=== PATIENT | female | born 1945 | race Caucasian/White ===

== ENCOUNTER 2020-03-09 11:17 | Outpatient (CLI) | payer MEDICARE, BC, SELFPAY ==
--- NOTE | 2020-03-09 11:24 | MM_ITS ---
WS: [id number] BILATERAL DIGITAL SCREENING MAMMOGRAPHY WITH CAD CLINICAL INFORMATION: SCREENING HISTORY: Screening mammogram. No current complaints. COMPARISON: TECHNIQUE: Bilateral CC and MLO views. FINDINGS: Scattered fibroglandular densities bilaterally. No suspicious focal mass, asymmetry, calcifications, or architectural distortion. No evidence of malignancy. Stable punctate and clustered calcifications. Stable clustered calcifications left breast. Stable secretory calcifications bilaterally. Postoperat flora changes right breast with volume loss. MM/[id number] IMPRESSION: BI-RADS: 2-Benign FOLLOW UP: 1 Year Follow-up Recommend return to annual screening mammography.
== END 2020-03-09 11:18 | disposition home or self-care (01) ==
LOC: RADSHAW 11:22
PROVIDERS: PCP Internal Medicine; Visit Provider Internal Medicine
DX: Z12.31 Encounter for screening mammogram for malignant neoplasm of breast (principal)
CPT/HCPCS: 77067

== ENCOUNTER → 2020-03-13 16:01 | Outpatient (BNVA) | payer MEDICARE, BC, SELFPAY | PROVIDERS: PCP Internal Medicine; Visit Provider Internal Medicine | DX: K90.9 Intestinal malabsorption, unspecified (principal); E88.81 Metabolic syndrome and other insulin resistance; R73.9 Hyperglycemia, unspecified; I10 Essential (primary) hypertension; E78.5 Hyperlipidemia, unspecified; Z95.2 Presence of prosthetic heart valve; Z79.899 Other long term (current) drug therapy | CPT/HCPCS: 80053; 83036; 83550; 84443; 85025 ==

== ENCOUNTER 2020-03-27 10:59 | Outpatient (CLI) | payer MEDICARE, BC, SELFPAY ==
--- NOTE | 2020-03-27 11:02 | XR_ITS ---
WS: [id number] Left hip, AP and frog leg standing, 03/27/2020 Clinical Data: E11.9 - Type 2 diabetes mellitus without complications Comparison: None. Findings: No fractures or dislocations are seen. The hip joint is intact. The soft tissues are not remarkable. The adjacent pelvis is normal. XR/XR hip LT 2-3V wo/w pel* [id number] Impression: Negative left hip.
== END 2020-03-27 11:00 | disposition home or self-care (01) ==
LOC: RAD 11:01
PROVIDERS: PCP Internal Medicine; Visit Provider Internal Medicine
DX: E11.9 Type 2 diabetes mellitus without complications (principal)
CPT/HCPCS: 73502

== ENCOUNTER → 2020-07-10 14:33 | Outpatient (BNVA) | payer MEDICARE, SELFPAY | PROVIDERS: PCP Internal Medicine; Visit Provider Family Medicine | DX: E11.65 Type 2 diabetes mellitus with hyperglycemia (principal); I10 Essential (primary) hypertension | CPT/HCPCS: 80048; 83036 ==

== ENCOUNTER → 2020-11-07 11:21 | Outpatient (BNVA) | payer MEDICARE, SELFPAY | PROVIDERS: PCP Family Medicine Adult Medicine; Visit Provider Family Medicine | DX: I10 Essential (primary) hypertension; E11.65 Type 2 diabetes mellitus with hyperglycemia | CPT/HCPCS: 80048; 83036 ==

== ENCOUNTER 2021-05-02 08:51 | Outpatient (CLI) | payer MEDICARE, SELFPAY ==
--- NOTE | 2021-05-02 08:57 | MM_ITS ---
WS: [id number] Bilateral screening digital mammogram, 05/02/2021 Clinical Data: SCREENING Comparison: 03/09/2020, 02/28/2019, 01/16/2017, 01/04/2016, 12/22/2014, 11/23/2013, 09/28/2012, 08/15/2011, 07/17/2009, 07/03/2008, 06/30/2007, 06/12/2006. Findings: The breast parenchymal pattern shows fat replacement. No spiculated masses or clustered calcification s are seen. There are no secondary signs of carcinoma. There is postoperative scarring at the upper o uter quadrant of the right breast. There are small axillary lymph nodes. There are mole markers on eric th breasts. There are small benign calcifications bilaterally. MM/[id number] Impression: 1. Negative bilateral mammogram unchanged. 2. Recommend annual screening mammograms. BIRADS: 2-Benign FOLLOW UP: 1 Year Follow-up The CAD lap checker was used.
== END 2021-05-02 08:52 | disposition home or self-care (01) ==
LOC: RADSHAW 08:55
PROVIDERS: PCP Family Medicine; Visit Provider Family Medicine
DX: Z12.31 Encounter for screening mammogram for malignant neoplasm of breast (principal)
CPT/HCPCS: 77067

== ENCOUNTER → 2021-08-14 14:43 | Outpatient (BNVA) | payer MEDICARE, BC, SELFPAY | PROVIDERS: PCP Family Medicine; Visit Provider Internal Medicine | DX: R06.02 Shortness of breath (principal); I10 Essential (primary) hypertension; E11.65 Type 2 diabetes mellitus with hyperglycemia; Z87.891 Personal history of nicotine dependence | CPT/HCPCS: 99214 ==

== ENCOUNTER 2021-10-03 11:29 | Outpatient (CLI) | payer MEDICARE, BC, SELFPAY ==
--- NOTE | 2021-10-03 12:00 | USCV_ITS ---
Sherrie Evans Age: 76 Gender: F : 1945 Exam Date: 10/03/2021 11:42 Ordering Phys: Joseph Mosley M.D ([email or web address]) Technologist: GEORGE Exam Location: [facility] [place] Indication: Shortness of breath, Murmur BP: 180 / 90 HR: 70 Rhythm: Sinus Technical Quality: Suboptimal MEASUREMENTS (Male / Female) Normal Values 2D ECHO LV Diastolic Diameter PLAX 3.8 cm 4.2 - 5.9 / 3.9 - 5.3 cm LV Systolic Diameter PLAX 2.5 cm IVS Diastolic Thickness 1.0 cm 0.6 - 1.0 / 0.6 - 0.9 cm IVS Systolic Thickness 1.5 cm LVPW Diastolic Thickness 1.0 cm 0.6 - 1.0 / 0.6 - 0.9 cm LVPW Systolic Thickness 1.2 cm LVOT Diameter 2.0 cm LV Ejection Fraction 2D Teich 63.2 % LA Diameter 2.9 cm Aorta at Sinotubular Diameter 2.0 cm IVC Diameter 1.5 cm M-MODE Aortic Annulus Diameter 2.0 cm LA Ao Ratio MM 1.4 MV E Point Septal Separation 0.6 cm DOPPLER AV Peak Velocity 156.0 cm/s LVOT Peak Velocity 76.0 cm/s AV Area Cont Eq vti 1.6 cm squared AV Area Cont Eq pk 1.6 cm squared MV Area PHT 2.8 cm squared Mitral E to A Ratio 0.9 MV E' Velocity 61.5 cm/s Mitral E to MV E' Ratio 14.9 Mitral E to LV E' Lateral Ratio 15.1 Mitral E to LV E' Septal Ratio 14.9 TR Peak Velocity 282.7 cm/s TR Peak Gradient 32.0 mmHg TV Peak E Velocity 39.0 cm/s Right Atrial Pressure 3.0 mmHg Pulmonary Artery Systolic Pressu 35.0 mmHg PV Peak Velocity 90.0 cm/s RV Acceleration Time 0.2 s RV Ejection Time 0.4 s RV AcT/ET 0.4 FINDINGS Left Ventricle Technically limited quality echocardiogram because of poor ultrasonic windows. LV systolic function is normal with EF of 55-60%. No regional wall motion abnormalities are seen. Grade 1 diastolic dysfunction Right Ventricle The right ventricle is normal in size and function. Right Atrium The right atrium is normal in size. Left Atrium The left atrium is normal in size. Mitral Valve Mild mitral annular calcification without significant stenosis or prolapse. There is mild mitral regurgitation. Aortic Valve Aortic valve is not well visualized but likely a bioprosthetic valve is seen. No significant aortic stenosis. Normal DVI of 0.50. There is no aortic regurgitation. Tricuspid Valve Grossly normal without significant stenosis. Mild tricuspid regurgitation. Insufficient TR jet to calculate RVSP Pulmonic Valve Not well visualized. There is trace pulmonic regurgitation. Pericardium Normal pericardium without effusion. Aorta Normal ascending aorta dimension. IVC CONCLUSIONS Technically limited quality echocardiogram because of poor ultrasonic windows. LV systolic function is normal with EF of 55-60%. Grade 1 diastolic dysfunction Mild mitral regurgitation Aortic valve is not well visualized but likely a bioprosthetic valve is seen. No significant aortic stenosis. Normal DVI of 0.50. Mild tricuspid regurgitation. Mild pulmonic regurgitation Compared to prior echocardiogram from 12/24/2018, patient now has a normally functioning bioprosthetic aortic valve Joseph Mosley MD (Electronically Signed) Final Date: 12 Oct 2021 23:50 S
== END 2021-10-03 11:30 | disposition home or self-care (01) ==
PROVIDERS: PCP Family Medicine; Visit Provider Internal Medicine
DX: I08.1 Rheumatic disorders of both mitral and tricuspid valves (principal); R01.1 Cardiac murmur, unspecified; R06.02 Shortness of breath
CPT/HCPCS: 93306

== ENCOUNTER → 2021-10-16 11:18 | Outpatient (BNVA) | payer MEDICARE, BC, SELFPAY | PROVIDERS: PCP Family Medicine; Visit Provider Family Medicine | DX: I10 Essential (primary) hypertension (principal); Z00.00 Encounter for general adult medical examination without abnormal findings; E11.65 Type 2 diabetes mellitus with hyperglycemia; K21.9 Gastro-esophageal reflux disease without esophagitis; M25.552 Pain in left hip; G89.29 Other chronic pain; G62.9 Polyneuropathy, unspecified; G47.00 Insomnia, unspecified | CPT/HCPCS: 80053; 83036; 85025 ==

== ENCOUNTER → 2022-03-31 11:09 | Outpatient (BNVA) | payer MEDICARE, BC, SELFPAY | PROVIDERS: PCP Family Medicine; Visit Provider Family Medicine | DX: I10 Essential (primary) hypertension (principal); E11.65 Type 2 diabetes mellitus with hyperglycemia; H69.82 Other specified disorders of Eustachian tube, left ear | CPT/HCPCS: 80053; 83036 ==

== ENCOUNTER → 2022-09-30 15:38 | Outpatient (BNVA) | payer MEDICARE, BC, SELFPAY | PROVIDERS: PCP Family Medicine; Visit Provider Internal Medicine | DX: I12.9 Hypertensive chronic kidney disease with stage 1 through stage 4 chronic kidney disease, or unspecified chronic kidney disease (principal); E11.22 Type 2 diabetes mellitus with diabetic chronic kidney disease; E11.65 Type 2 diabetes mellitus with hyperglycemia; N18.30 Chronic kidney disease, stage 3 unspecified; Z87.891 Personal history of nicotine dependence; Z79.84 Long term (current) use of oral hypoglycemic drugs; Z95.2 Presence of prosthetic heart valve | CPT/HCPCS: 99214 ==

== ENCOUNTER 2022-10-17 14:33 | Outpatient (CLI) | payer MEDICARE, BC, SELFPAY ==
--- NOTE | 2022-10-17 14:45 | USCV_ITS ---
Sherrie Evans Age: 77 Gender: F : 1945 Exam Date: 10/17/2022 15:14 Ordering Phys: Joseph Mosley M.D ([email or web address]) Technologist: Exam Location: [facility] – [place] Indication: tavor ao pros BP: 130 / 80 HR: 71 Rhythm: Sinus Technical Quality: Adequate MEASUREMENTS (Male / Female) Normal Values 2D ECHO LV Diastolic Diameter PLAX 4.1 cm 4.2 - 5.9 / 3.9 - 5.3 cm LV Systolic Diameter PLAX 2.5 cm IVS Diastolic Thickness 1.2 cm 0.6 - 1.0 / 0.6 - 0.9 cm IVS Systolic Thickness 1.1 cm LVPW Diastolic Thickness 1.1 cm 0.6 - 1.0 / 0.6 - 0.9 cm LVPW Systolic Thickness 1.6 cm LVOT Diameter 2.1 cm LV Ejection Fraction 2D Teich 69.0 % LV Ejection Fraction MOD 2C 63.3 % LV Ejection Fraction 2C AL 62.3 % LA Diameter 3.9 cm LA Width 4.4 cm DOPPLER AV Peak Velocity 269.7 cm/s LVOT Peak Velocity 125.0 cm/s AV Area Cont Eq vti 1.9 cm squared AV Area Cont Eq pk 1.6 cm squared MV Area PHT 2.1 cm squared Mitral E to A Ratio 0.8 MV E' Velocity 68.0 cm/s Mitral E to MV E' Ratio 18.2 Mitral E to LV E' Lateral Ratio 16.6 Mitral E to LV E' Septal Ratio 20.3 TR Peak Velocity 209.0 cm/s TR Peak Gradient 17.5 mmHg Right Atrial Pressure 3.0 mmHg Pulmonary Artery Systolic Pressu 20.5 mmHg RV Acceleration Time 0.1 s FINDINGS Left Ventricle Left ventricle is normal in size. Left ventricular hypertrophy is seen. LV systolic function is normal with EF of 65 to 70%. No regional wall motion abnormalities are seen. Grade 1 diastolic dysfunction Right Ventricle Normal in size and function Right Atrium Normal in size Left Atrium Normal in size Mitral Valve Mitral valve is thickened and calcified. Mild mitral regurgitation Aortic Valve Possibly bioprosthetic aortic valve. DVI 0.6 and is normal. Tricuspid Valve Mild tricuspid regurgitation. Insufficient TR jet to evaluate RVSP Pulmonic Valve Not well-visualized Pericardium Normal Aorta Normal in size IVC Appears to be normal CONCLUSIONS Left ventricular hypertrophy LV systolic function is normal with EF of 65 to 70% Grade 1 diastolic dysfunction Mild mitral regurgitation Possibly bioprosthetic aortic valve.normally functioning prosthetic aortic valve with a DVI of 0.6. Mild tricuspid regurgitation Compared to prior echocardiogram from 2021, no significant changes are seen Joseph Mosley MD (Electronically Signed) Final Date: 25 October 2022 13:57 S
== END 2022-10-17 14:34 | disposition home or self-care (01) ==
LOC: RAD 14:33
PROVIDERS: PCP Family Medicine; Visit Provider Internal Medicine
DX: I08.1 Rheumatic disorders of both mitral and tricuspid valves (principal); R06.02 Shortness of breath
CPT/HCPCS: 93306

== ENCOUNTER → 2023-02-12 14:13 | Outpatient (BNVA) | payer MEDICARE, BC, SELFPAY | PROVIDERS: PCP Family Medicine; Referring Provider Family Medicine; Visit Provider Family Medicine | DX: E11.65 Type 2 diabetes mellitus with hyperglycemia (principal) | CPT/HCPCS: 80053; 83036; 85025 ==

== ENCOUNTER → 2023-09-29 12:51 | Outpatient (BNVA) | payer MEDICARE, SELFPAY | PROVIDERS: PCP Family Medicine; Visit Provider Internal Medicine | DX: I12.9 Hypertensive chronic kidney disease with stage 1 through stage 4 chronic kidney disease, or unspecified chronic kidney disease (principal); Z95.2 Presence of prosthetic heart valve; E11.65 Type 2 diabetes mellitus with hyperglycemia; E11.22 Type 2 diabetes mellitus with diabetic chronic kidney disease; N18.30 Chronic kidney disease, stage 3 unspecified; Z87.891 Personal history of nicotine dependence; Z79.84 Long term (current) use of oral hypoglycemic drugs | CPT/HCPCS: 99214 ==

== ENCOUNTER 2024-02-11 10:39 | Outpatient (CLI) | payer MEDICARE, BC, SELFPAY ==
--- NOTE | 2024-02-11 10:43 | MM_ITS ---
WS: [id number] Bilateral screening 3D tomosynthesis digital mammogram, 02/11/2024 10:59 AM Clinical Data: SCREENING Comparison: 05/02/2021, 03/09/2020, 02/28/2019, 01/16/2017, 01/04/2016, 12/22/2014, 11/23/2013, 09/28/2012, , 07/25/2010, 07/17/2009, 07/03/2008, 06/30/2007, 06/12/2006. Findings: No spiculated masses or clustered calcifications are seen. There are no secondary signs of carcinoma . The breast parenchyma pattern shows scattered fat replacement. There is scarring in the upper outer quadrant of the right breast from prior surgery. There are scattered benign calcifications throughou t the breasts. There are mole markers on both breasts. MM/MM scr BI tomosynthesis [id number] Impression: Negative bilateral mammogram unchanged. Recommend annual screening mammograms. BIRADS: 1 - Negative. FOLLOW UP: 1 Year Follow-up DENSITY: The breasts are almost entirely fatty. The CAD parimutuel ticket checker was used
== END 2024-02-11 10:40 | disposition home or self-care (01) ==
LOC: RAD 10:40
PROVIDERS: PCP Family Medicine; Visit Provider Family Medicine
DX: Z12.31 Encounter for screening mammogram for malignant neoplasm of breast (principal); R92.313 Mammographic fatty tissue density, bilateral breasts; R92.1 Mammographic calcification found on diagnostic imaging of breast
CPT/HCPCS: 77063; 77067

== ENCOUNTER → 2024-05-02 12:12 | Outpatient (BNVA) | payer MEDICARE, BC, SELFPAY | PROVIDERS: PCP Family Medicine; Visit Provider Family Medicine | DX: I10 Essential (primary) hypertension (principal); E11.65 Type 2 diabetes mellitus with hyperglycemia; N18.31 Chronic kidney disease, stage 3a; K21.9 Gastro-esophageal reflux disease without esophagitis | CPT/HCPCS: 80053; 83036; 85025 ==

== ENCOUNTER → 2024-07-25 10:54 | Outpatient (BNVA) | payer MEDICARE, BC, SELFPAY | PROVIDERS: PCP Family Medicine; Visit Provider Family Medicine | DX: E11.65 Type 2 diabetes mellitus with hyperglycemia (principal) | CPT/HCPCS: 80053; 85025 ==

== ENCOUNTER 2024-07-29 11:52 | Outpatient (CLI) | payer MEDICARE, BC, SELFPAY ==
--- NOTE | 2024-07-29 12:15 | US_ITS ---
WS: [id number] RIGHT UPPER QUADRANT ULTRASOUND HISTORY: increasing right upper quad pain p increase PPI meds COMPARISON: 03/24/2016 Liver: 14.8 cm in length. Diffuse coarse echotexture. Normal size liver. No mass. No intrahepatic duct dilatation. Portal Vein: Normal hepatopetal flow with monophasic waveform. Gallbladder: Normally distended gallbladder with cholelithiasis. No gallbladder wall thickening. CBD: 0.4 cm Pancreas: Obscured. Right kidney: 11.8 cm in length. Cortical thinning and increased echogenicity. No obstruction of the kidney. Cortical cyst superior pole measures 2.4 x 2.4 x 2.9 cm. There is a smaller cortical cyst in the mid kidney. Aorta and IVC: Poorly visualized. No ascites. US/US gall bladder [id number] IMPRESSION: 1. Cholelithiasis without acute cholecystitis. 2. Mild hepatic steatosis. No intrahepatic duct dilatation. 3. RIGHT renal cysts.
== END 2024-07-29 11:53 | disposition home or self-care (01) ==
PROVIDERS: PCP Family Medicine; Visit Provider Family Medicine
DX: K80.20 Calculus of gallbladder without cholecystitis without obstruction (principal); K83.09 Other cholangitis; K76.0 Fatty (change of) liver, not elsewhere classified; N28.1 Cyst of kidney, acquired; R93.421 Abnormal radiologic findings on diagnostic imaging of right kidney
CPT/HCPCS: 76705; 80053; 85025

== ENCOUNTER → 2024-08-09 10:50 | Outpatient (BNVA) | payer MEDICARE, BC, SELFPAY | PROVIDERS: PCP Family Medicine; Referring Provider Family Medicine; Visit Provider Surgery | DX: K21.9 Gastro-esophageal reflux disease without esophagitis (principal); K80.20 Calculus of gallbladder without cholecystitis without obstruction | CPT/HCPCS: 99204 ==

== ENCOUNTER → 2024-08-10 10:11 | Outpatient (BNVA) | payer MEDICARE, BC, SELFPAY | PROVIDERS: PCP Family Medicine; Visit Provider Family Medicine | DX: Z01.818 Encounter for other preprocedural examination (principal) | CPT/HCPCS: 93005 ==

== ENCOUNTER 2024-08-22 05:38 | Day surgery (SDC) | payer MEDICARE, BC, SELFPAY ==
[2024-08-22] VITALS (12 sets, daily range): BP systolic 81–191; BP diastolic 48–99; PULSE 60–76; RESP 15–20; TEMP 36.1–36.5; O2SAT 94–99; BMI 27.7
--- NOTE | 2024-08-22 05:44 | P.HPUD_ITS ---
Surgery/Procedure H&P Update DATE OF PROCEDURE: August 22, 2024 DATE H&P PERFORMED: 08/09/24 H&P UPDATE INFORMATION: I have reviewed H&P completed within last 30 days, I have examined patient prior to procedure, No changes to prior documentation, H&P is in [facility] EMR on date indicated and Risks and benefits of the procedure reviewed PLANNED PROCEDURE: Operation Date: 08/22/24 07:00 Proposed Procedures p Laparoscopic Possible Open Cholecystectomy(Not Applicable) - Mingo Harry MD
--- NOTE | 2024-08-22 05:53 | ANES.PREANE2 ---
Pre-Anesthetic Assessment Height/Weight: Height 5 ft 6 in Preop Diagnosis: Chronic cholecystitis Operation Date: 08/22/24 07:00 Proposed Procedures p Laparoscopic Possible Open Cholecystectomy(Not Applicable) - Mingo Harry MD Was Beta Dianne taken within 24 hours: Yes Was Clonidine taken within 24 hours: N/A Exam alert, oriented x 3, clear to auscultation bilaterally and regular rate & rhythm (Systolic murmur noted on auscultation) Airway Submandibular: within normal limits Cervical ROM: within normal limits Mallampati: Class III Dentition: full Anesthetic Plan ASA status: 3 Anesthesia: General Other: No prior issues with anesthesia NPO since yesterday evening History of hypertension on hydralazine, losartan and metoprolol GERD, on chronic omeprazole. Patient states that she has GERD symptoms all the time. Will give preop Pepcid CKD stage III NIDDM CAD, s/p TAVR in 2018 Echo 2022 showing EF of 65 to 70%. ROBERTO 1.9 cm EKG showing sinus rhythm with possible old anterior HI Labs 07/25/2024 reviewed and acceptable for procedure. CR 1.4 which appears to be about baseline Plan for GETA with modified RSI Medications/Allergies Home Medications ?Medication ?Instructions ?Recorded ?Confirmed ?Last Taken ?Type aspirin 81 mg tablet,delayed 81 mg PO QDAY 06/16/19 08/18/24 08/17/24 History release (Adult Aspirin Regimen) glucometer with strips and lancets #1 ea 03/27/20 08/09/24 Unknown Rx blood sugar diagnostic (OneTouch #100 ea 01/28/22 08/09/24 Unknown Rx Ultra Test strips) trazodone 50 mg tablet See Rx Instructions .Route 12/23/23 08/18/24 08/21/24 Rx .COMPLEX #180 tabs glipizide 5 mg tablet See Rx Instructions .Route 04/28/24 08/18/24 08/20/24 Rx .COMPLEX #60 tabs omeprazole 20 mg capsule,delayed 20 mg PO BID #60 caps 05/02/24 08/18/24 08/18/24 Rx release topiramate 50 mg tablet See Rx Instructions .Route 05/12/24 08/18/24 08/21/24 Rx .COMPLEX #90 tabs dapagliflozin propaned 10 1 tab PO DAILY #90 ea 06/01/24 08/18/24 08/20/24 Rx mg-metformin ER 500 mg tablet, ext rel 24hr metoprolol tartrate 50 mg tablet See Rx Instructions .Route 07/04/24 08/22/24 08/22/24 Rx .COMPLEX #180 tabs 0515 hydralazine 100 mg tablet See Rx Instructions .Route 07/05/24 08/18/24 08/21/24 Rx .COMPLEX #180 tabs losartan 100 mg tablet See Rx Instructions .Route 07/18/24 08/18/24 08/21/24 Rx .COMPLEX #90 tabs Allergies Allergy/AdvReac Type Severity Reaction Status Date / Time hydrochlorothiazide (From Allergy ALGY-Hives Verified 08/10/24 10:19 Dyazide) Penicillins Allergy ALGY-Hives Verified 08/10/24 10:19 triamterene (From Dyazide) Allergy ALGY-Hives Verified 08/10/24 10:19 [facility] Anesthesia Medical History Chronic GERD Uncontrolled diabetes mellitus CKD (chronic kidney disease) stage 3, GFR 30-59 ml/min Polyneuropathy, unspecified Iron malabsorption Tendinitis of left foot Insulin resistance Fatty liver Surgical History History of breast biopsy History of D&C History of tubal ligation S/P TAVR (transcatheter aortic valve replacement) History of hysterectomy Family History Other Congestive heart failure (CHF) Diabetes Social History Smoking and tobacco/nicotine status: never used tobacco/nicotine Alcohol intake: current Alcohol intake frequency: holidays/special occasions only Substance/Drug Use: never Marital status: / Data Anesthesia Cardiac Studies: Echocardiogram 10/17/22
[2024-08-22] MEDS: sodium chloride 0.9% 1,000 ML 30 ML IV (06:44)
[2024-08-22] MEDS: famotidine 20 mg/2 mL INJ IVP (06:47)
[2024-08-22 06:54] LABS: Glucose Point of Care 170 mg/dL (70-110)
[2024-08-22] MEDS: clindamycin 600 MG/50 ML PREMIX 100 MG IV (06:58)
[2024-08-22] MEDS: BUPivacaine 0.25% INJ 10 mL INJECTION (07:21)
[2024-08-22] MEDS: lidocaine-epi 1% 20 mL INJ 10 ML INJECTION (07:22)
--- NOTE | 2024-08-22 08:24 | PM.OP ---
Operative Report Date of procedure: August 22, 2024 Pre-op diagnosis: Symptomatic cholelithiasis Post-op diagnosis: Same Specimens removed/disposition: Gallbladder Surgeon: Mingo Harry MD Automatic Furnace Operator: LARRY OR STaff Complications: none Brief History: 79-year-old female with symptomatic cholelithiasis, after discussion of risk and benefits of decided to proceed to the OR for a laparoscopic possible open cholecystectomy. Procedure: Patient was brought into the OR, she was placed in a supine position. General anesthesia was given. The abdomen was prepped and draped in the usual sterile fashion. Timeout was conducted. The abdomen was accessed in the left upper quadrant with an Optiview trocar measuring 5 mm, initial laparoscopy showed no evidence of visceral injury during entry. Additional 12 mm trocar was placed under direct visualization in the supraumbilical position. 5 mm trocars were placed under direct visualization in the epigastrium right upper quadrant and right flank positions. The patient was placed in a reverse Trendelenburg with the left side down. The gallbladder was grasped from the fundus and retracted cephalad, the infundibulum was grasped and retracted in the inferolateral direction. Some adhesions from the duodenum to the infundibulum were noted and were taken down with careful blunt dissection. The peritoneum anterior to the hepatocystic triangle was opened with electrocautery, this opening was carried in the medial and lateral direction to the edges of the liver and then on the sides of the gallbladder to allow for better visualization. With careful blunt dissection and electrocautery was able to encircle the cystic artery and cystic duct and I elevated the lower third of the gallbladder from the liver obtaining a critical view of safety. Cystic duct and cystic artery were double clipped proximally and single clipped distally and transected. The gallbladder was removed from the liver bed using electrocautery. The liver bed appeared hemostatic and the clips were in good position, no bile leak was identified. Before removing the gallbladder from the abdomen I decided to decompress it to allow for easier extraction. I made a hole in the gallbladder and then suction all the bile out. The hole was then closed with 2 clips to prevent leakage. The gallbladder was retrieved from the abdomen via the umbilical trocar site in an Endo Catch bag. The liver bed was irrigated and suctioned. The umbilical trocar site was closed with #0 Vicryl using a Chin-Ugs suture passer under direct visualization. The right upper quadrant right flank and epigastrium trocar were removed under direct visualization, the left upper quadrant trocar was used to evacuate the pneumoperitoneum and subsequently removed. The wounds were closed in layers using #3-0 Vicryl for the subcutaneous tissue #4 Monocryl for the skin, local anesthesia was infiltrated and Dermabond applied. At the end of the procedure all counts were correct, the patient tolerated well the procedure was transferred to PACU in stable condition
[2024-08-22] MEDS: oxyCODONE 5 mg IR Tab/Cap PO (09:40)
--- NOTE | 2024-08-22 10:21 | ANE.PACU2 ---
Inpatient post-anesthesia follow up: Airway intact: Yes Vital signs: Temperature 97.2 F Pulse Rate 69 Respiratory Rate 18 Blood Pressure 134/94 Pulse Oximetry 98 Oxygen Delivery Me thod Room Air Oxygen Flow Rate 6 Fraction of Inspir ed Oxygen Hydration adequate: Yes Nausea and vomiting: No Pain level: 1 Mental status: Baseline
== END 2024-08-22 10:21 | disposition home or self-care (01) ==
PROVIDERS: PCP Family Medicine; Visit Provider Surgery
PROC: 0FT44ZZ Resection of Gallbladder, Percutaneous Endoscopic Approach (ICD-10-PCS; CPT 47562; principal; 2024-08-22 07:00)
DX: K80.10 Calculus of gallbladder with chronic cholecystitis without obstruction (principal); K21.9 Gastro-esophageal reflux disease without esophagitis; E11.22 Type 2 diabetes mellitus with diabetic chronic kidney disease; E11.42 Type 2 diabetes mellitus with diabetic polyneuropathy; I12.9 Hypertensive chronic kidney disease with stage 1 through stage 4 chronic kidney disease, or unspecified chronic kidney disease; N18.30 Chronic kidney disease, stage 3 unspecified; Z79.82 Long term (current) use of aspirin; Z79.84 Long term (current) use of oral hypoglycemic drugs; Z88.0 Allergy status to penicillin; Z88.8 Allergy status to other drugs, medicaments and biological substances; Z79.899 Other long term (current) drug therapy
CPT/HCPCS: 47562; 36416; 82962; 88304; J1100; J1200; J2371; J2405; J2704; J2710; J3010; J3490; J7030; J9999

== ENCOUNTER → 2024-09-13 10:16 | Outpatient (BNVA) | payer MEDICARE, BC, SELFPAY | PROVIDERS: PCP Family Medicine; Visit Provider Surgery | DX: Z98.890 Other specified postprocedural states (principal) | CPT/HCPCS: 99024 ==

== ENCOUNTER → 2024-10-14 11:33 | Outpatient (BNVA) | payer MEDICARE, BC, SELFPAY | PROVIDERS: PCP Family Medicine; Visit Provider Internal Medicine | DX: I10 Essential (primary) hypertension (principal); E11.65 Type 2 diabetes mellitus with hyperglycemia; Z79.84 Long term (current) use of oral hypoglycemic drugs; Z95.2 Presence of prosthetic heart valve; Z79.82 Long term (current) use of aspirin; Z87.891 Personal history of nicotine dependence | CPT/HCPCS: 99213 ==

== ENCOUNTER → 2024-12-05 14:50 | Outpatient (BNVA) | payer MEDICARE, BC, SELFPAY | PROVIDERS: PCP Family Medicine; Visit Provider Family Medicine | DX: I10 Essential (primary) hypertension (principal); R10.12 Left upper quadrant pain; E11.65 Type 2 diabetes mellitus with hyperglycemia | CPT/HCPCS: 80053; 82150; 83036; 85025 ==

== ENCOUNTER 2024-12-07 08:22 | Outpatient (CLI) | payer MEDICARE, BC, SELFPAY ==
[2024-12-07] MEDS: iohexol 350 mg/mL 500 mL Btl (per mL) PO (08:36)
--- NOTE | 2024-12-07 09:30 | CT_ITS ---
WS: [id number] CT ABDOMEN AND PELVIS NONCONTRAST HISTORY: K80.20 - Calculus of gallbladder without cholecystitis wi... TECHNIQUE: Imaging performed through the abdomen and pelvis. Coronal and sagittal reformats are submitted. All CT scans at [facility] use at least one of these dose optimization techniques: automated exposure control; mA and/or kV adjustment per patient size (includes targeted exams where dose is matched to clinical indication); or iterative reconstruction. DLP: 504.50 mGy.cm COMPARISON: None available. Lower thorax: Prior aortic valve replacement. Bilateral pleural-based nodules at the lung bases. Largest nodule is 3 mm. Heart size is normal. Small hiatal hernia. Liver: Normal size liver. No mass or bile duct dilatation. Gallbladder: Prior cholecystectomy. Pancreas: Diffuse pancreatic atrophy. No pancreatic duct dilatation. Spleen: Normal size with granulomata. Dense calcification in the splenic hilum measures 9 mm. 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 Adrenal glands: Normal. No mass. Right kidney: Normal size RIGHT kidney with diffuse cortical thinning. There are multiple renal masses of variable attenuation throughout the kidney. There is no obstruction. Left kidney: Normal size kidney with diffuse moderate cortical thinning. There are multiple cortical masses of variable attenuation. No obstruction of the kidney. Aorta: Mild atherosclerosis abdominal aorta with no aneurysm. Heavy calcified plaque in the proximal LEFT renal artery. No free fluid, intraperitoneal air or significant lymphadenopathy. GI tract: Stomach is well distended with oral contrast. No small bowel obstruction. Appendix is not definitely identified. There is moderate diffuse constipation. Increasing diverticular burden in the mid to distal colon. No evidence for acute diverticulitis. Abdominal wall: Small umbilical hernia contains fat only. Pelvis: Well-distended urinary bladder. There may be a small cystocele. Prior hysterectomy. Osseous structures: Advanced degenerative spondylitic changes in the lumbar spine. Marked facet joint arthropathy in the lumbar spine. CT/CT abdomen pelvis wo con [id number] IMPRESSION: 1. No GI tract obstruction. 2. Moderate constipation. Moderate diverticular burden in the distal and sigmo id colon. No evidence for acute diverticulitis. 3. No free fluid or free air. 4. Numerous bilateral variable density renal masses. These are probably hyperd ense cysts and cyst. Solid mass would be difficult to exclude. 5. Prior cholecystectomy. 6. Prior aortic valve replacement. 7. Severe atrophy pancreas.
== END 2024-12-07 08:23 | disposition home or self-care (01) ==
LOC: RAD 08:23
PROVIDERS: PCP Family Medicine; Visit Provider Family Medicine
DX: K59.00 Constipation, unspecified (principal); K21.9 Gastro-esophageal reflux disease without esophagitis; N28.89 Other specified disorders of kidney and ureter; K86.89 Other specified diseases of pancreas; Z90.49 Acquired absence of other specified parts of digestive tract
CPT/HCPCS: 74176

== ENCOUNTER 2024-12-20 11:56 | Outpatient (CLI) | payer MEDICARE, BC, SELFPAY ==
--- NOTE | 2024-12-20 12:15 | US_ITS ---
WS: [id number] RENAL ULTRASOUND HISTORY: N18.31 - Chronic kidney disease, stage 3a COMPARISON: CT 12/07/2024 TECHNIQUE: 2-D and color Doppler imaging of the kidney submitted. Right kidney: 10.6 cm x 5.3 cm x 6.9 cm. Cortex: 1.0 cm Normal size kidney with increased echogenicity. No hydronephrosis. Thinning of the renal cortex. There are multiple cystic masses. The largest from the lower pole measures 3.0 x 3.2 x 2.9 cm. Left kidney: 8.6 cm x 3.7 cm x 6.4 cm. Cortex: 1.1 cm Mild atrophy LEFT kidney with increased echogenicity throughout the kidney. No hydronephrosis or solid mass identified. Tiny cortical cyst identified LEFT kidney. Aorta: Normal. Urinary Bladder: Normal distention. US/US renal BI* [id number] IMPRESSION: 1. Mild atrophy LEFT kidney. 2. No renal obstruction. 3. Moderate chronic medical renal disease, bilateral. 4. Numerous simple cyst RIGHT kidney. Very tiny cortical cyst LEFT kidney.
== END 2024-12-20 11:57 | disposition home or self-care (01) ==
LOC: RAD 11:59
PROVIDERS: PCP Family Medicine; Visit Provider Family Medicine
DX: N18.31 Chronic kidney disease, stage 3a (principal); R93.5 Abnormal findings on diagnostic imaging of other abdominal regions, including retroperitoneum; N26.1 Atrophy of kidney (terminal); N28.1 Cyst of kidney, acquired
CPT/HCPCS: 76770; 99214

== ENCOUNTER 2025-01-18 06:45 | Day surgery (SDC) | payer MEDICARE, BC, SELFPAY ==
--- NOTE | 2025-01-18 07:03 | P.HPUD_ITS ---
Surgery/Procedure H&P Update DATE OF PROCEDURE: January 18, 2025 DATE H&P PERFORMED: 12/20/24 H&P UPDATE INFORMATION: I have reviewed H&P completed within last 30 days, I have examined patient prior to procedure, No changes to prior documentation, H&P is in [facility] EMR on date indicated and Risks and benefits of the procedure reviewed PLANNED PROCEDURE: Operation Date: 01/18/25 08:20 Proposed Procedures p EGD EGD with Biopsy [id number] R10.9(Not Applicable) - Mingo Harry MD s Colonoscopy(Not Applicable) - Mingo Harry MD
[2025-01-18 07:16] VITALS: BP 165/92; PULSE 88; RESP 16; TEMP 36.3; O2SAT 95
--- NOTE | 2025-01-18 07:26 | ANES.PREANE2 ---
Pre-Anesthetic Assessment Height/Weight: Height 1.68 m Weight 78.018 kg Temp Pulse Resp BP Pulse Ox O2 Del Method 97.4 F L 88 16 165/92 95 Room Air 01/18/25 07:16 01/18/25 07:16 01/18/25 07:16 01/18/25 07:16 01/18/25 07:16 01/18/25 07:16 Preop Diagnosis: Abd. Pain Operation Date: 01/18/25 08:20 Proposed Procedures p EGD EGD with Biopsy [id number] R10.9(Not Applicable) - Mingo Harry MD s Colonoscopy(Not Applicable) - Mingo Harry MD Familial anesthetic complications: none Was Beta Dianne taken within 24 hours: Yes Was Clonidine taken within 24 hours: N/A Last intake: Intake Last Liquid Date 01/17/25 Last Liquid Time 20:00 Last Solid Date 01/17/25 Last Solid Time 18:00 Social No alcohol and No tobacco Exam alert, oriented x 3, clear to auscultation bilaterally and regular rate & rhythm Airway Cervical ROM: within normal limits Mallampati: Class II Dentition: full Pulmonary None reported CV/HEM Hypertension TAVR, EF 60% Chronic Renal Insufficiency (stage 3) Hepatic None reported GI abd. pain Metabolic Diabetes Mellitus [facility] None reported Neuropsych None reported Anesthetic Plan ASA status: 3 Anesthesia: MAC Risk of > 500 ml blood loss (7ml/kg in children): No Medications/Allergies Home Medications ?Medication ?Instructions ?Recorded ?Confirmed ?Last Taken ?Type aspirin 81 mg tablet,delayed 81 mg PO QDAY 06/16/19 01/12/25 01/17/25 History release (Adult Aspirin Regimen) blood sugar diagnostic (OneTouch #100 ea 01/28/22 12/20/24 Unknown Rx Ultra Test strips) hydralazine 100 mg tablet See Rx Instructions .Route 07/05/24 01/12/25 01/17/25 Rx .COMPLEX #180 tabs diabetic test strips #100 ea 12/29/24 Unknown Rx glucometer with strips and lancets #1 ea 12/29/24 Unknown Rx glipizide 5 mg tablet 5 mg PO BID 01/12/25 01/12/25 01/17/25 History losartan 100 mg tablet 100 mg PO DAILY 01/12/25 01/12/25 01/17/25 History metoprolol tartrate 50 mg tablet 50 mg PO DAILY 01/12/25 01/12/25 01/18/25 History omeprazole 20 mg capsule,delayed 20 mg PO DAILY 01/12/25 01/12/25 01/17/25 History release topiramate 50 mg tablet 50 mg PO DAILY 01/12/25 01/12/25 01/17/25 History trazodone 50 mg tablet 50 - 100 mg PO BEDTIME 01/12/25 01/12/25 01/17/25 History Allergies Allergy/AdvReac Type Severity Reaction Status Date / Time hydrochlorothiazide (From Allergy ALGY-Hives Verified 01/12/25 08:28 Dyazide) Penicillins Allergy ALGY-Hives Verified 01/12/25 08:28 triamterene (From Dyazide) Allergy ALGY-Hives Verified 01/12/25 08:28 [facility] Anesthesia Medical History (Updated 12/20/24 @ 11:00 by Mingo Harry MD) Chronic GERD Uncontrolled diabetes mellitus CKD (chronic kidney disease) stage 3, GFR 30-59 ml/min Polyneuropathy, unspecified Iron malabsorption Tendinitis of left foot Insulin resistance Fatty liver Surgical History History of breast biopsy History of D&C History of tubal ligation S/P TAVR (transcatheter aortic valve replacement) History of hysterectomy Family History Other Congestive heart failure (CHF) Diabetes Social History Smoking and tobacco/nicotine status: never used tobacco/nicotine Alcohol intake: current Alcohol intake frequency: holidays/special occasions only Substance/Drug Use: never Marital status: / Data Anesthesia Cardiac Studies: Echocardiogram 10/17/22
--- NOTE | 2025-01-18 08:16 | PC.NURSE ---
cecum time 0814
[2025-01-18 08:34] VITALS: BP 153/84; PULSE 70; RESP 18; TEMP 36.4; O2SAT 95
[2025-01-18 08:42] VITALS: BP 129/73; PULSE 73; RESP 18; O2SAT 97
--- NOTE | 2025-01-18 09:00 | ANE.PACU2 ---
Inpatient post-anesthesia follow up: Airway intact: Yes Vital signs: Temperature 97.6 F Pulse Rate 73 Respiratory Rate 18 Blood Pressure 129/73 Pulse Oximetry 97 Oxygen Delivery Me thod Room Air Oxygen Flow Rate Fraction of Inspir ed Oxygen Hydration adequate: Yes Nausea and vomiting: No Pain level: 1 Mental status: Baseline
== END 2025-01-18 09:02 | disposition home or self-care (01) ==
PROVIDERS: PCP Family Medicine; Visit Provider Surgery
PROC: 0DJ08ZZ Inspection of Upper Intestinal Tract, Via Natural or Artificial Opening Endoscopic (ICD-10-PCS; principal; 2025-01-18 08:20)
PROC: 0DJD8ZZ Inspection of Lower Intestinal Tract, Via Natural or Artificial Opening Endoscopic (ICD-10-PCS; CPT 45378; 2025-01-18 08:20)
DX: R10.9 Unspecified abdominal pain (principal); D12.6 Benign neoplasm of colon, unspecified; D12.8 Benign neoplasm of rectum; K57.30 Diverticulosis of large intestine without perforation or abscess without bleeding; K64.8 Other hemorrhoids; K29.70 Gastritis, unspecified, without bleeding; K44.9 Diaphragmatic hernia without obstruction or gangrene; E11.22 Type 2 diabetes mellitus with diabetic chronic kidney disease; I12.9 Hypertensive chronic kidney disease with stage 1 through stage 4 chronic kidney disease, or unspecified chronic kidney disease; N18.30 Chronic kidney disease, stage 3 unspecified; Z79.82 Long term (current) use of aspirin; K21.9 Gastro-esophageal reflux disease without esophagitis; G62.9 Polyneuropathy, unspecified
CPT/HCPCS: 36416; 43239; 45380; 82962; 88305; J2371; J2704; J3490; J7030

== ENCOUNTER → 2025-01-31 09:03 | Outpatient (BNVA) | payer MEDICARE, BC, SELFPAY | PROVIDERS: PCP Family Medicine; Visit Provider Surgery | DX: Z09 Encounter for follow-up examination after completed treatment for conditions other than malignant neoplasm (principal) | CPT/HCPCS: 99213 ==

== ENCOUNTER 2025-02-15 12:41 | Outpatient (CLI) | payer MEDICARE, BC, SELFPAY ==
--- NOTE | 2025-02-15 12:45 | MM_ITS ---
WS: [id number] BILATERAL 3D TOMOSYNTHESIS DIGITAL SCREENING MAMMOGRAPHY WITH CAD CLINICAL INFORMATION: ANNUAL SCREENING HISTORY: Screening mammogram. No current complaints. COMPARISON: 2023 TECHNIQUE: Bilateral CC and MLO views. FINDINGS: Scattered fibroglandular densities bilaterally. No suspicious focal mass, asymmetry, calcifications, or architectural distortion. No evidence of malignancy. Vascular calcification. Incidental punctate calcifications. Secretory calcifications. Parenchymal scarring upper outer quadrant RIGHT breast. MM/MM scr tomosynthesis [id number] IMPRESSION: DENSITY: There are scattered areas of fibroglandular density. BI-RADS: 2 - Benign. FOLLOW UP: 1 Year Follow-up Recommend return to annual screening mammography.
== END 2025-02-15 12:42 | disposition home or self-care (01) ==
LOC: RAD 12:42
PROVIDERS: PCP Family Medicine; Visit Provider Family Medicine
DX: Z12.31 Encounter for screening mammogram for malignant neoplasm of breast (principal); R92.323 Mammographic fibroglandular density, bilateral breasts; R92.1 Mammographic calcification found on diagnostic imaging of breast; N64.89 Other specified disorders of breast
CPT/HCPCS: 77063; 77067